=== PATIENT | male | born 1970 | race Hispanic/Latino ===

== ENCOUNTER 2016-08-04 08:55 | Emergency (ER) | payer OTHER ==
[2016-08-04] MEDS ORDERED: METHYLPRED SOD SUCC 125 MG/2 ML VIAL ONE (10:01)
[2016-08-04] MEDS ORDERED: DIPHENHYDRAMINE 25 MG CAP ONE (10:01)
[2016-08-04] MEDS ORDERED: FAMOTIDINE 20 MG TAB ONE (10:01)
== END 2016-08-04 11:05 | disposition home or self-care (01) ==
LOC: ER 08:55
DX: R21 Rash and other nonspecific skin eruption (principal); T78.40XA Allergy, unspecified, initial encounter; F17.210 Nicotine dependence, cigarettes, uncomplicated
CPT/HCPCS: 96372; 99283; J2930